=== PATIENT | male | born 1985 | race Caucasian/White ===

== ENCOUNTER 2017-06-15 11:53 | Emergency (ER) | payer SELFPAY, BC ==
[2017-06-15] MEDS: SOD CHLORIDE 0.9% 1,000 ML IV (12:01)
[2017-06-15] MEDS: LORAZEPAM 2 MG INJ IV (12:30)
[2017-06-15 12:44] LABS: ADD MAN DIFF? NO
[2017-06-15 12:45] LABS: BASOPHILS % 0.2 % (0.0-2.0); EOSINOPHILS % 0.1 % (0.0-7.0); HEMOGLOBIN 16.6 g/dl (14.0-18.0); LYMPHOCYTES # 4.5 10^3/ul (0.8-2.9); LYMPHOCYTES % 23.5 % (15.0-51.0); MEAN CORPUSCULAR HEMOGLOBIN 30.1 pg (29.0-33.0); MEAN CORPUSCULAR HGB CONC 34.6 g/dl (32.0-37.0); MEAN PLATELET VOLUME 10.8 fl (7.4-10.4); MONOCYTE # 1.4 10^3/ul (0.3-0.9); MONOCYTES % 7.2 % (0.0-11.0); NEUTROPHIL # 13.1 10^3/ul (1.6-7.5); NEUTROPHILS % 68.6 % (39.0-77.0); PLATELET COUNT 328 10^3/UL (140-415); RED BLOOD COUNT 5.52 10^6/ul (4.70-6.10); RED CELL DISTRIBUTION WIDTH 12.7 % (11.5-14.5)
[2017-06-15 13:02] LABS: ANION GAP 21 (8-16); BLOOD UREA NITROGEN 15 mg/dl (7-20); CALCIUM 10.2 mg/dl (8.4-10.2); CARBON DIOXIDE 23 mmol/L (21-31); CHLORIDE 103 mmol/L (97-110); CREATININE 0.94 mg/dl (0.61-1.24); GLUCOSE 128 mg/dl (70-220); POTASSIUM 3.7 mmol/L (3.5-5.1); SODIUM 143 mmol/L (135-144)
== END 2017-06-15 15:05 | disposition home or self-care (01) ==
LOC: E/R 11:53
DX: F41.9 Anxiety disorder, unspecified (principal)
CPT/HCPCS: 36415; 80048; 82962; 85025; 93005; 96361; 96374; 99284-25

== ENCOUNTER 2018-07-17 06:49 | Emergency (ER) | payer SELFPAY | END 2018-07-17 07:59 | disposition left against medical advice (07) | LOC: E/R 07:59 | DX: Z53.21 Procedure and treatment not carried out due to patient leaving prior to being seen by health care provider (principal) | CPT/HCPCS: 93005 ==

== ENCOUNTER 2018-11-30 20:47 | Emergency (ER) | payer MEDICAID | END 2018-11-30 21:51 | disposition home or self-care (01) | LOC: E/R 20:47 | DX: R53.1 Weakness (principal) | CPT/HCPCS: 93005; 99283-25 ==